=== PATIENT | female | born 1955 | race Hispanic/Latino ===

== ENCOUNTER → 2017-05-05 | Outpatient (CLI) | payer OTHER | END | disposition home or self-care (01) | LOC: SLP 20:50 | PROVIDERS: ATTEND Family Medicine | DX: G47.33 Obstructive sleep apnea (adult) (pediatric) (principal) | CPT/HCPCS: 95810 ==

== ENCOUNTER 2023-04-27 02:49 | Emergency (ER) | payer OTHER ==
[~2023-04-27] VITALS: Ht 154.9 cm; Wt 74.8 kg
[2023-04-27 03:36] LABS: BASOPHILS # (AUTO) 0.07 K/uL (0.00-0.20); BASOPHILS % (AUTO) 0.7 % (0.0-5.0); EOSINOPHILS # (AUTO) 0.26 K/uL (0.00-0.70); EOSINOPHILS % (AUTO) 2.7 % (0.0-8.0); HEMATOCRIT 42.1 % (36-48); IMMATURE GRANULOCYTE ABSOLUTE 0.04 K/uL (0-1); LYMPHOCYTES # (AUTO) 3.8 K/uL (1.0-4.8); LYMPHOCYTES % (AUTO) 39.2 % (21.0-51.0); MEAN CORPUSCULAR HEMOGLOBIN 31.1 pg (27.0-33.0); MEAN CORPUSCULAR HGB CONC 33.7 g/dL (32.0-36.0); MEAN CORPUSCULAR VOLUME 92.3 fL (79-99); MONOCYTES # (AUTO) 0.8 K/uL (0.1-1.0); MONOCYTES % (AUTO) 8.1 % (3.0-13.0); NEUTROPHILS # (AUTO) 4.7 K/uL (1.8-7.7); NEUTROPHILS % (AUTO) 48.9 % (40.0-77.0); PLATELET COUNT (AUTO) 217 K/uL (130-400); RED BLOOD CELL COUNT(AUTO) 4.56 MIL/uL (4.00-5.50); RED CELL DISTRIBUTION WIDTH 12.2 % (11.0-15.5); WHITE BLOOD COUNT (AUTO) 9.7 K/uL (4.8-10.8)
[2023-04-27 03:41] LABS: CREATININE 0.7 mg/dL (0.5-1.5)
[2023-04-27 03:48] LABS: BILIRUBIN,TOTAL 0.3 mg/dL (0.2-1.0)
[2023-04-27] MEDS ORDERED: GABAPENTIN 300 MG CAPSULE PO SCH (05:00)
[2023-04-27] MEDS ORDERED: IBUPROFEN 800 MG TAB PO ONE (05:00)
[2023-04-27] MEDS ORDERED: PRED20TA3 PO (05:09)
[2023-04-27] MEDS ORDERED: GABA300C PO (05:09)
[2023-04-27] MEDS ORDERED: IBUP-1493 PO (05:09)
[2023-04-27 05:11] VITALS: BP 145/62; PULSE 84; RESP 18; O2SAT 97
== END 2023-04-27 05:29 | disposition home or self-care (01) ==
LOC: EDH 02:49
DX: M47.22 Other spondylosis with radiculopathy, cervical region (principal); I10 Essential (primary) hypertension; E78.00 Pure hypercholesterolemia, unspecified; Z98.890 Other specified postprocedural states
CPT/HCPCS: 36415; 71045; 72125; 73030; 73070; 73100; 80053; 82550; 84484; 85025; 93005